=== PATIENT | male | born 1955 | race Caucasian/White ===

== ENCOUNTER 2023-09-13 18:31 | Emergency (ER) | payer OTHER ==
[~2023-09-13] VITALS: Ht 180.3 cm; Wt 86.2 kg
[2023-09-13 18:52] VITALS: BP 154/95; PULSE 125; RESP 16; TEMP 97.9; O2SAT 96
== END 2023-09-13 20:53 ==
LOC: MED 18:31
DX: Z02.89 Encounter for other administrative examinations (principal); R40.4 Transient alteration of awareness
CPT/HCPCS: 70450; 72125; 99284